=== PATIENT | female | born 1985 | race Caucasian/White ===

== ENCOUNTER 2018-11-22 23:20 | Emergency (ER) | payer OTHER, MEDICAID, SELFPAY ==
[2018-11-22 23:20] VITALS: BP 108/69; PULSE 98; RESP 14; TEMP 37.6; O2SAT 95; BMI 20.1
--- NOTE | 2018-11-22 23:37 | ED.DEP ---
ED Disposition - Plan for ED Patient: Instructions: ED Flu Referrals: Deric Reeves MD [Primary Care Provider] -
[2018-11-23 00:19] VITALS: PULSE 91; RESP 14; TEMP 37.2; O2SAT 98
--- NOTE | 2018-11-23 08:13 | ED.VISSUMM ---
- ER Visit Summary Date of Service: 11/23/18 Chief Complaint: Fever, cough, sore throat, headache History of Present Illness: The patient is a 33 F who presents with the above complaints since yesterday. Her mother was recently admitted with influenza. Patient states that she was advised to be checked out immediately. She complains of subjective fever sore throat cough headache. No chest pain shortness of breath nausea vomiting or diarrhea. Physical Examination: Afebrile vitals unremarkable Moist mucous membranes Heart regular rate and rhythm Lungs clear Abdomen soft Alert Test Results: Not indicated Emergency Department Course and Treatment: Patient presents with symptoms consistent with influenza and she did have influenza exposure. Given age and lack of comorbidities I did not recommend Tamiflu. We had a discussion of risks and benefits and patient is in agreement with plan for supportive care. She understands return for new or worsening symptoms or she was discharged. Treatment Plan: [] Disposition: Discharge Impression: Influenza This note was generated with [employer] dictation software. It may contain incorrect words, spelling, and punctuation that were not noted in review of the chart prior to signing ED Disposition - Plan for ED Patient: Disposition: Home or Assisted Living Instructions: ED Flu Referrals: Deric eReves MD [Primary Care Provider] -
--- NOTE | 2018-11-23 08:17 | ED.DCSUM_ITS ---
- ER Visit Summary Date of Service: 11/23/18 Chief Complaint: Fever, cough, sore throat, headache History of Present Illness: The patient is a 33 F who presents with the above complaints since yesterday. Her mother was recently admitted with influenza. Patient states that she was advised to be checked out immediately. She complains of subjective fever sore throat cough headache. No chest pain shortness of breath nausea vomiting or diarrhea. Physical Examination: Afebrile vitals unremarkable Moist mucous membranes Heart regular rate and rhythm Lungs clear Abdomen soft Alert Test Results: Not indicated Emergency Department Course and Treatment: Patient presents with symptoms consistent with influenza and she did have influenza exposure. Given age and lack of comorbidities I did not recommend Tamiflu. We had a discussion of risks and benefits and patient is in agreement with plan for supportive care. She understands return for new or worsening symptoms or she was discharged. Treatment Plan: [] Disposition: Discharge Impression: Influenza This note was generated with [employer] dictation software. It may contain incorrect words, spelling, and punctuation that were not noted in review of the chart prior to signing ED Disposition - Plan for ED Patient: Disposition: Home or Assisted Living Instructions: ED Flu Referrals: Deric Reeves MD [Primary Care Provider] -
== END 2018-11-23 00:20 | disposition home or self-care (01) ==
PROVIDERS: Emergency Provider Emergency Medicine; Family Provider Family Medicine; PCP Family Medicine
DX: J11.1 Influenza due to unidentified influenza virus with other respiratory manifestations (principal); Z72.0 Tobacco use
CPT/HCPCS: 99282